=== PATIENT | female | born 1985 | race Caucasian/White ===

== ENCOUNTER → 2023-10-21 11:47 | Outpatient (REF) | payer BC, SELFPAY | LOC: HWWDC 11:47 | PROVIDERS: ATTENDING PHYSICIAN Nurse Practitioner Family | DX: Z12.31 Encounter for screening mammogram for malignant neoplasm of breast (principal) | CPT/HCPCS: 77063; 77067 ==

== ENCOUNTER → 2023-12-17 09:34 | Outpatient (REF) | payer BC, SELFPAY | LOC: HWRAD 09:34 | PROVIDERS: ATTENDING PHYSICIAN Family Medicine | DX: M54.16 Radiculopathy, lumbar region (principal); M54.30 Sciatica, unspecified side | CPT/HCPCS: 72110 ==

== ENCOUNTER → 2025-05-20 11:20 | Outpatient (REF) | payer BC, SELFPAY | LOC: HWWDC 11:20 | PROVIDERS: ATTENDING PHYSICIAN Nurse Practitioner Adult Health; REFERRING PHYSICIAN Obstetrics & Gynecology | DX: Z12.31 Encounter for screening mammogram for malignant neoplasm of breast (principal) | CPT/HCPCS: 77063; 77067 ==